=== PATIENT | female | born 1965 | race Caucasian/White ===

== ENCOUNTER → 2017-06-07 | Outpatient (CLI) | payer OTHER | LOC: FIMAGING 11:20 | PROVIDERS: ATTEND Family Medicine | DX: M25.522 Pain in left elbow (principal) ==

== ENCOUNTER → 2017-06-27 | Outpatient (CLI) | payer OTHER | LOC: FIMAGING 08:46 | PROVIDERS: ATTEND Family Medicine | DX: Z12.31 Encounter for screening mammogram for malignant neoplasm of breast (principal) | CPT/HCPCS: G0202 ==

== ENCOUNTER 2017-12-24 19:58 | Emergency (ER) | payer OTHER ==
[2017-12-24 20:06] VITALS: BP 115/77; PULSE 81; RESP 16; TEMP 98.4; O2SAT 93
--- NOTE | 2017-12-24 20:17 | EDPHY ---
H & P Time Seen by Provider: 12/24/17 20:07 HPI/ROS: CHIEF COMPLAINT: Rib pain/sternal pain HISTORY OF PRESENT ILLNESS: Patient is a 52-year-old female who fell skiing a week and half ago. She had left anterior rib pain. She went and saw her primary care physician. At that time her physician did not perform an x-ray because she stated the treatment was the same. The patient has continued to have discomfort in her left anterior chest. She now has pain over her sternum as well. No significant shortness of breath. No fevers or chills. Her pain is worse with movement. REVIEW OF SYSTEMS: My complete review of systems is negative except as mentioned in the HPI. Past Medical/Surgical History: Includes appendectomy Social history: Patient does not smoke Smoking Status: Never smoked Physical Exam: 36.9, 115/77, 81, 16, 93% on room air GENERAL: Well-appearing, in no acute distress, alert. HEENT: Eyes normal to inspection. NECK: No thyromegaly, no lymphadenopathy, supple. No spinal tenderness. RESPIRATORY: Clear to auscultation bilaterally, no rales, rhonchi or wheezing. The patient has mild left anterior chest wall tenderness to palpation with no crepitus or step-off. Patient has mild mid sternal tenderness palpation with no palpable deformity. CVS: Regular rate and rhythm, no rubs, murmurs, or gallops. ABDOMEN: Soft, nontender, nondistended, no organomegaly. BACK: Normal to inspection, no spinal tenderness SKIN: Normal color, no rash, warm, dry. No pallor. EXTREMITIES: No pedal edema, no joint swelling. NEURO/PSYCH: Alert and oriented, normal mood and affect, normal motor sensory exam. Constitutional: Initial Vital Signs Temperature (C) 36.9 C 12/24/17 20:03 Heart Rate 81 12/24/17 20:03 Respiratory Rate 16 12/24/17 20:03 Blood Pressure 115/77 12/24/17 20:03 O2 Sat (%) 93 12/24/17 20:03 O2 Delivery Mode Room Air Allergies/Adverse Reactions: No Known Allergies Allergy (Unverified 12/30/09 09:39) Home Medications: Medication Instructions Recorded NK [No Known Home Meds] 12/24/17 Medical Decision Making - Diagnostics Imaging Results: Imaging Impressions Chest X-Ray 12/24/17 20:14 Impression: 1. No active cardiopulmonary disease seen. 2. Questionable cortical offset at the mid sternum. Consider possibility of fracture. If indicated, consider sternum series. ED Course/Re-evaluation: In the emergency department I discussed possible etiologies with the patient. I answered all her questions. A chest x-ray was ordered. Chest x-ray: No cardiopulmonary disease. The patient does have a slight cortical step-off of the sternum. This could represent fracture. I do not feel the patient needs further imaging of her sternum. I discussed the results with the patient. I answered all her questions. She is given warnings prior to leaving. Differential Diagnosis: My differential includes but is not limited to fracture, dislocation, contusion , sprain, pneumothorax, hemothorax Departure - Departure Disposition: Home, Routine, Self-Care Clinical Impression: Sternal fracture Qualifiers: Encounter type: initial encounter Sternal location: unspecified Fracture type: closed Qualified Code(s): S22.20XA - Unspecified fracture of sternum, initial encounter for closed fracture Condition: Good Instructions: Chest Wall Pain (ED) Additional Instructions: Follow-up with your primary care physician. Return with increasing shortness of breath or any other concerns.
[2017-12-24] MEDS ORDERED: HYDROCOD/APAP 5/325 PREPACK#6 BTL TAKEHOME ONE (20:51)
== END 2017-12-24 21:15 | disposition home or self-care (01) ==
DX: S22.20XA Unspecified fracture of sternum, initial encounter for closed fracture (principal); V00.321A Fall from snow-skis, initial encounter; Y93.23 Activity, snow (alpine) (downhill) skiing, snowboarding, sledding, tobogganing and snow tubing

== ENCOUNTER 2018-08-08 09:52 | Emergency (ER) | payer OTHER ==
[2018-08-08 10:36] LABS: PLATELET COUNT 273 10^3/uL (150-400)
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
[2018-08-08] MEDS ORDERED: KETOROLAC 30 MG/1 ML SDV IVP ONE (11:20)
[2018-08-08 11:51] VITALS: BP 126/86
--- NOTE | 2018-08-08 15:20 | CPEKG ---
Test Reason : OPEN Blood Pressure : / mmHG Vent. Rate : 069 BPM Atrial Rate : 069 BPM P-R Int : 186 ms QRS Dur : 104 ms QT Int : 403 ms P-R-T Axes : 034 -19 028 degrees QTc Int : 432 ms Sinus rhythm Borderline left axis deviation Confirmed by Beto Griffiths ([id number]) on 08/08/2018 3:19:51 PM Referred By: Confirmed By:Beto Griffiths
== END 2018-08-08 11:49 | disposition home or self-care (01) ==
DX: R07.9 Chest pain, unspecified (principal)
CPT/HCPCS: 84484-PO; 96374; J1885

== ENCOUNTER → 2019-02-23 | Outpatient (CLI) | payer OTHER | LOC: FIMAGING 11:30 | PROVIDERS: ATTEND Family Medicine | DX: Z12.31 Encounter for screening mammogram for malignant neoplasm of breast (principal); Z80.3 Family history of malignant neoplasm of breast ==